=== PATIENT | male | born 1940 | race Caucasian/White ===

== ENCOUNTER 2017-10-26 03:43 | Inpatient (IN) | payer OTHER ==
[~2017-10-26] VITALS: Ht 188 cm; Wt 122.2 kg
[~2017-10-26 03:43] MED LIST: AUGMENTIN 875-1 EACH PO; COUMADIN5 M2 PO; ENOXAPARIN100 MG/1 M; LISINOPRIL20 M1 PO; METFORMIN HCL500 M3 PO; METOPROLOL TART50 M1 PO; OXYCODONE-ACET1 EACH PO; RED YEAST RICE600 M1 PO; VIAGRA100 M1 PO
--- NOTE | 2017-10-26 04:07 | ED GENERAL ADULT ---
History of Present Illness General Chief Complaint: Male Genitourinary Problems Stated Complaint: "BLEEDING FROM URINARY TRACT AND PASSING CLOTS" Source: patient Exam Limitations: no limitations Vital Signs & Intake/Output Vital Signs & Intake/Output Vital Signs Date Time Temp Pulse Resp B/P B/P Pulse O2 O2 Flow FiO2 Mean Ox Delivery Rate 10/26 1235 98.2 89 15 121/71 98 Room Air Room Air 10/26 1105 98.6 85 18 130/86 98 Room Air 10/26 0915 98.5 79 20 128/84 99 Room Air 10/26 0824 98.6 76 18 132/84 98 Room Air 10/26 0620 98.2 76 20 139/72 97 Room Air 10/26 0408 Room Air 10/26 0352 98.4 70 16 129/70 96 Room Air Room Air Allergies Coded Allergies: NO KNOWN ALLERGIES (12/04/10) Reconcile Medications Enoxaparin Sodium 100 MG/1 ML SYRINGE S/P SURGERY (Reported) Lisinopril 20 MG TABLET 20 MG PO DAILY HYPERTENSION (Reported) Metformin HCl 500 MG TABLET 500 MG PO DAILY DIABETES (Reported) Metoprolol Tartrate 50 MG TABLET 50 MG PO DAILY HYPERTENSION (Reported) Oxycodone HCl/Acetaminophen (Oxycodone-Acetaminophen 5-325) 1 EACH TABLET 1 TAB PO BIDP PRN PAIN (Reported) Red Yeast Rice 600 MG CAPSULE 600 MG PO BID HIGH CHOLESTEROL (Reported) Sildenafil Citrate (Viagra) 100 MG TABLET 1 TAB PO DAILY NEEDED ERECTILE DYSFUNCTION (Reported) 1 hour before sexual activity Warfarin Sodium (Coumadin) 5 MG TABLET 5 MG PO DAILY BLOOD THINNER (Reported) Triage Note: 77YO MALE TO TRIAGE W/CO BLEEDING W/URINATION SINCE THIS AM. STATES HE RECENTLY HAD UTI. Triage Nurses Notes Reviewed? yes Onset: Abrupt Duration: day(s): Timing: no prior history HPI: 10/26/17 4 AM 77-year-old man presents to the emergency department complaining of gross hematuria. He says that he's had a history of intermittent hematuria in the past and it cleared with a second course of antibiotic. Now he's passing gross blood and clots. He is on Coumadin for DVT. He denies any pain. He is also status post CyberKnife surgery for prostate cancer. (Jaycob Givens DO) Past History Travel History Traveled to [place] past 21 day No Medical History Any Pertinent Medical History? 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 No (Jaycob Givens DO) Review of Systems Review of Systems Constitutional: Denies: fever. EENTM: Denies: visual changes. Respiratory: Denies: short of breath. Cardiovascular: Denies: chest pain. GI: Denies: abdominal pain. Genitourinary: Reports: see HPI. Musculoskeletal: Reports: no symptoms. Skin: Denies: rash. Neurological/Psychological: Reports: no symptoms. Hematologic/Endocrine: Reports: see HPI. Immunologic/Allergic: Reports: no symptoms. (Jaycob Givens DO) Physical Exam Physical Exam General Appearance: well developed/nourished, alert, awake, anxious, moderate distress Head: atraumatic, normal appearance Eyes: Bilateral: normal appearance, PERRL, EOMI. Ears, Nose, Throat: normal pharynx, normal ENT inspection Neck: normal inspection Respiratory: normal breath sounds, chest non-tender, no respiratory distress Cardiovascular: regular rate/rhythm Peripheral Pulses: 4+ radial (R), 4+ radial (L) Gastrointestinal: soft, non-tender Rectal: heme negative stool Back: normal range of motion Extremities: no edema Neurologic/Psych: no motor/sensory deficits, awake, alert, oriented x 3 Skin: intact, normal color, warm/dry Core Measures ACS in differential dx? No CVA/TIA Diagnosis: No Sepsis Present: No Sepsis Focused Exam Completed? No (Jaycob Givens DO) Progress Differential Diagnoses I considered the following diagnoses in my evaluation of the patient: [ Coaguloathy, UTI, bladder stone, kidney stone] Plan of Care: Orders Procedure Date/time Status PROTHROMBIN TIME 10/27 599 Active CBC WITHOUT DIFFERENTIAL 07/02 0600 Active Heart Healthy Diet 10/26 L Active Weight 10/26 1258 Active Teach/Educate 10/26 1258 Active Pain Treatment and Response 10/26 1258 Active Nutritional Intake, Monitor 10/26 1258 Active Isolation 10/26 1258 Active Patient Care Conference 10/26 1258 Active Pathway - chart 10/26 1057 Active House Staff 10/26 1057 Active Patient Data 10/26 1057 Active Code Status 10/26 1057 Active OXYGEN SETUP (GEN) 10/26 0945 Active Saline Lock 10/26 0945 Active Admit to inpatient 10/26 0945 Active Vital Signs 10/26 0945 Active Activity/Ambulation 10/26 0945 Active Code Status 10/26 0945 Complete Continuous Bladder Irrigation 10/26 0426 Active Intake & Output 10/26 0407 Active PROTHROMBIN TIME 10/26 0407 Complete COMPREHENSIVE METABOLIC PANEL 10/26 0407 Complete CBC WITHOUT DIFFERENTIAL 10/26 0407 Complete CULTURE,URINE 10/26 0403 Active URINALYSIS 10/26 0359 Complete VTE Mechanical Prophylaxis 10/26 UNK Active FingerStick- Glucose 10/26 UNK Active Current Medications Sig/Jolene Start time Last Medication Dose Stop Time Status Admin Ceftriaxone Sodium 1,000 MG DAILY 10/27 0900 AC (Rocephin) Metoprolol Succinate 25 MG DAILY 10/26 1230 AC (Toprol XL) Insulin Aspart 0 TIDAC 10/26 1200 AC (NovoLOG) Oxycodone HCl 5 MG Q6 PRN 10/26 1130 AC (Roxicodone) Lisinopril 20 MG DAILY 10/26 1120 AC (Prinivil) Acetaminophen 1,000 MG Q8P PRN 10/26 1100 AC 10/26 (Tylenol) 1312 Laboratory Tests 10/26/17 0428: Anion Gap 12, Estimated GFR > 60, BUN/Creatinine Ratio 25.6 H, Glucose 116 H, Calcium 9.1, Total Bilirubin 0.4, AST 16 L, ALT 14 L, Alkaline Phosphatase 59, Total Protein 6.5, Albumin 3.9, Globulin 2.6, Albumin/Globulin Ratio 1.5, PT 32.5 H, INR 2.95 H, CBC w Diff NO MAN DIFF REQ, RBC 4.28 L, MCV 91.1, MCH 30.0, MCHC 33.0, RDW 15.9 H, MPV 7.7, Gran % 67.2, Lymphocytes % 21.1, Monocytes % 7.8, Eosinophils % 3.0, Basophils % 0.9, Absolute Granulocytes 4.4, Absolute Lymphocytes 1.4, Absolute Monocytes 0.5, Absolute Eosinophils 0.2, Absolute Basophils 0.1 10/26/17 0400: Urinalysis LIGHT H, Urine Color BLDY H, Urine Clarity TURBD H, Urine pH 6.0, Ur Specific [place] 1.020, Urine Protein >=300 H, Urine Ketones NEG, Urine Nitrite POS H, Urine Bilirubin NEG@ICTO, Urine Urobilinogen 0.2, Ur Leukocyte Esterase MOD H, Ur Microscopic SEDIMENT EXAMINED, Urine RBC PACKD H, Urine WBC > 75 H, Ur Epithelial Cells MOD H, Urine Bacteria FEW H, Urine Hemoglobin LARGE H, Urine Glucose NEG Microbiology 10/27 399 URINE ROUT: Urine Culture - RECD Initial ED EKG: none (Jaycob Givens DO) Differential Diagnoses I considered the following diagnoses in my evaluation of the patient: (Jerry Fernandez MD) Departure Departure Disposition: HOME OR SELF CARE Condition: Stable Referrals: Libby Archer MD (PCP/Family) Departure Forms: Customer Survey General Discharge Information Comments 10/26/17 The patient is currently getting CBI. His urine is improving. He will be signed out to Dr. Fernandez at 7 AM (Jaycob Givens DO) Departure Clinical Impression Primary Impression: Hematuria Secondary Impressions: UTI (urinary tract infection) Admission Note Spoke With: Josselin Fletcher MD Documentation of Exam: Documentation of any treatments & extenuating circumstances including Concerns Regarding Discharge (functional status, medication knowledge or non-compliance, living conditions, etc.) that warrant an admission rather than observation: IV hydration CBI urology evaluation serial lab exam medication adjustment continuing care discharge planning (Jerry Fernandez MD) Critical Care Note Critical Care Note Critical Care Time: non-applicable (Jaycob Givens DO)
[2017-10-26 04:44] LABS: ABSOLUTE BASOPHIL COUNT 0.1 /CUMM (0.0-0.2); ABSOLUTE EOSINOPHIL COUNT 0.2 /CUMM (0.0-0.7); ABSOLUTE GRANULOCYTE CT 4.4 /CUMM (1.4-6.5); ABSOLUTE LYMPH COUNT 1.4 /CUMM (1.2-3.4); ABSOLUTE MONOCYTE COUNT 0.5 /CUMM (0.10-0.60); BASOPHIL % 0.9 % (0.0-2.0); GRANULOCYTE % 67.2 % (42.2-75.2); MEAN CORPUSCULAR VOLUME 91.1 FL (80.0-94.0); MEAN PLATELET VOLUME 7.7 FL (7.4-10.4); PLATELET COUNT 228 /CUMM (130-400); RBC DISTRIBUTION WIDTH 15.9 % (11.5-14.5); RED BLOOD CELL CT 4.28 /CUMM (4.70-6.10); WHITE BLOOD CELL COUNT 6.6 /CUMM (4.8-10.8)
[2017-10-26 04:50] LABS: PT 32.5 SEC (9.4-12.5)
--- NOTE | 2017-10-26 10:18 | History & Physical ---
Karen TERRAZAS,[place] 10/26/17 1018: General Information and HPI History of Present Illness: Mr. 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 Patient is followed by Dr. Ross for urology and an oncologist at [facility]. The patient notes that he was recently treated for urinary tract infection and received 7 days of antibiotics. He stopped antibiotics about a week ago and was feeling well until last night. Last night around 11 PM, he began having blood in his urine and passing clots. He also reports urinary frequency and burning. Allergies/Medications Allergies: Coded Allergies: NO KNOWN ALLERGIES (12/04/10) Home Med list Enoxaparin Sodium 100 MG/1 ML SYRINGE S/P SURGERY (Reported) Lisinopril 20 MG TABLET 20 MG PO DAILY HYPERTENSION (Reported) Metformin HCl 500 MG TABLET 500 MG PO DAILY DIABETES (Reported) Metoprolol Tartrate 50 MG TABLET 50 MG PO DAILY HYPERTENSION (Reported) Oxycodone HCl/Acetaminophen (Oxycodone-Acetaminophen 5-325) 1 EACH TABLET 1 TAB PO BIDP PRN PAIN (Reported) Red Yeast Rice 600 MG CAPSULE 600 MG PO BID HIGH CHOLESTEROL (Reported) Sildenafil Citrate (Viagra) 100 MG TABLET 1 TAB PO DAILY NEEDED ERECTILE DYSFUNCTION (Reported) 1 hour before sexual activity Warfarin Sodium (Coumadin) 5 MG TABLET 5 MG PO DAILY BLOOD THINNER (Reported) Past History Travel History Traveled to [place] past 21 day No Medical History Neurological: NONE EENT: NONE Cardiovascular: AFIB, hypertension, hyperlipidemia, DVT-B/L AZAEL FILTERS PLACED Respiratory: NONE Gastrointestinal: NONE Hepatic: NONE Renal: NONE Musculoskeletal: NONE Psychiatric: NONE Endocrine: diabetes Blood Disorders: NONE Cancer(s): prostate cancer (STATUS POST CYBERKNIFE) 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 EENTM: Reports: no symptoms. Cardiovascular: Reports: no symptoms. Respiratory: Reports: no symptoms. GI: Reports: no symptoms. Genitourinary: Reports: see HPI. Musculoskeletal: Reports: no symptoms. Skin: Reports: no symptoms. Neurological/Psychological: Reports: no symptoms. Hematologic/Endocrine: Reports: no symptoms. Immunologic/Allergic: Reports: no symptoms. All Other Systems: Reviewed and Negative Exam & Diagnostic Data Last 24 Hrs of Vital Signs/I&O Vital Signs Date Time Temp Pulse Resp B/P B/P Pulse O2 O2 Flow FiO2 Mean Ox Delivery Rate 10/27 823 98.6 76 18 132/84 98 Room Air 10/26 0620 98.2 76 20 139/72 97 Room Air 10/26 0408 Room Air 10/26 0352 98.4 70 16 129/70 96 Room Air Room Air Intake & Output 10/26 1600 10/26 0800 10/26 0000 Intake Total 1600 Output Total 250 Balance 1350 Intake, Other 1600 Output, Urine 250 Patient 122.47 kg Weight Physical Exam General Appearance Alert, Oriented X3, Cooperative, No Acute Distress Cardiovascular Regular Rate, Normal S1, Normal S2 Lungs Clear to Auscultation Abdomen Normal Bowel Sounds, Soft, No Tenderness, Penis covered in blood, templeton draining red urine. Extremities No Edema, Normal Pulses, No Tenderness/Swelling Last 24 Hrs of Labs/Roney: Laboratory Tests 10/26/17 0428: Anion Gap 12, Estimated GFR > 60, BUN/Creatinine Ratio 25.6 H, Glucose 116 H, Calcium 9.1, Total Bilirubin 0.4, AST 16 L, ALT 14 L, Alkaline Phosphatase 59, Total Protein 6.5, Albumin 3.9, Globulin 2.6, Albumin/Globulin Ratio 1.5, PT 32.5 H, INR 2.95 H, CBC w Diff NO MAN DIFF REQ, RBC 4.28 L, MCV 91.1, MCH 30.0, MCHC 33.0, RDW 15.9 H, MPV 7.7, Gran % 67.2, Lymphocytes % 21.1, Monocytes % 7.8, Eosinophils % 3.0, Basophils % 0.9, Absolute Granulocytes 4.4, Absolute Lymphocytes 1.4, Absolute Monocytes 0.5, Absolute Eosinophils 0.2, Absolute Basophils 0.1 10/26/17 0400: Urinalysis LIGHT H, Urine Color BLDY H, Urine Clarity TURBD H, Urine pH 6.0, Ur Specific [place] 1.020, Urine Protein >=300 H, Urine Ketones NEG, Urine Nitrite POS H, Urine Bilirubin NEG@ICTO, Urine Urobilinogen 0.2, Ur Leukocyte Esterase MOD H, Ur Microscopic SEDIMENT EXAMINED, Urine RBC PACKD H, Urine WBC > 75 H, Ur Epithelial Cells MOD H, Urine Bacteria FEW H, Urine Hemoglobin LARGE H, Urine Glucose NEG Microbiology 10/26 0400 URINE ROUT: Urine Culture - RECD Assessment/Plan Assessment: MMr. 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 On presentation, vital signs were T 98.4, HR 70, RR 16, BP 129/70, saturating 96 % on room air. Laboratories were significant for NATAN globin 12.9, MCV 91.1, BUN 23, glucose 116, negative LFTs, INR 2.95. Urinalysis showed bloody urine, greater than 300 protein, positive nitrites, moderate leukocyte esterase, greater than 75 to wbcs. He will be admitted to general medicine and treated for the following problems: 1. Gross hematuria on warfarin 2. Radiation cystitis 3. Normocytic anemia The patient's hematuria is likely related to his prostate cancer with history of radiation in the setting of anticoagulation and urinary tract infection. His INR was therapeutic, however we will hold warfarin at this time given the bleeding. He has received continuous bladder irrigation and will we will continue this until he is not passing clots and the urine is clear. Plan: -Continuous bladder irrigation -Urology consult -Continue ceftriaxone -Follow urine culture -Monitor CBC -Daily INR -Type and screen tomorrow -Hold warfarin -Hold metformin -Insulin sliding scale/Accu-Cheks -Pain control -Continue other home medications DVT prophylaxis with Alps Heart healthy diet Full code As Ranked By This Provider Problem List: 1. Hematuria Core Measures/Misc (01/12) Acute Coronary Syndrome ACS Diagnosis: No Congestive Heart Failure Congestive Heart Failure Diagnosis No Cerebrovascular Accident CVA/TIA Diagnosis: No VTE (View Protocol) VTE Risk Factors Age>40 No Mechanical VTE Prophylaxis d/t N/A MechProphylax Ordered No VTE Pharm Prophylaxis d/t Bleeding (Active) Sepsis (View protocol) Sepsis Present: No If YES complete Sepsis Event Note If YES complete Sepsis Event Note Justine TERRAZAS,Josselin 10/26/17 1230: Core Measures/Misc (01/12) Sepsis (View protocol) If YES complete Sepsis Event Note If YES complete Sepsis Event Note Attending MD Review Statement Attending Statement Attending MD Statement: examined this patient, discuss w/resident/PA/HAND LEATHER TRIMMER, agreed w/resident/PA/HAND LEATHER TRIMMER, reviewed EMR data (avail), discussed with nursing, reviewed images Attending Assessment/Plan: 77-year-old male past medical history of diabetes, hypertension, hyperlipidemia, previous DVT in 2005 and 2008 and prostate CA status post CyberKnife treatment. He also had a hip replacement in July of this year. He says that last week he was diagnosed with a UTI and he got an antibiotic course, the initial antibiotic did not work needed to switch to another one and he completed the course on October 17. He says for the past few days he is now had increasing burning and pain on urination and today he noticed bright red blood in his urine. In the ER they tried CBI however despite being on his fifth liter the hematuria didn't clear and he has a lot of clots. At this point will bring him into GEN med, will continue CBI and pursue a formal urological evaluation. We'll continue his leigha inhibitor and his beta chago for hypertension. Hold his metformin. His INR is 2.9 as he takes Coumadin. At this point we won't actively reverse him, will keep a close watch on the H&H and follow the INR in the morning. He does have burning and pain on urination with the UA that shows greater than 75 white cells we'll treat him empirically for UTI and follow the urine culture. Will need to get collateral information from his PCP tomorrow. The question is whether he is developing this hematuria secondary to his radiation cystitis from previous radiation associated with prostate CA or whether he has any kind of anatomical abnormality that's predisposing him to recurrent UTIs and hematuria. We also need to clarify the Coumadin and whether he needs to be on it ongoing.
--- NOTE | 2017-10-26 12:30 | Admission Certification ---
Admission Certification Certification Statement - As attending physician, I certify that at the time of - admission, based on clinical presentation, severity of - symptoms, need for further diagnostic testing and - therapeutic interventions, and risk of adverse outcomes - without in-hospital treatment, in my clinical assessment, - this patient requires an acute hospital stay for a minimum - of two nights or longer. I have also considered psychsocial - factors such as support system, advanced age, financial - issues, cognitive issues, and failed out-patient treatments, - past re-admission history, safety of patient, and lack of - compliance as applicable. Specific rationale supporting this admission is: Acute hematuria and UTI needs IV antibiotics and CBI.
[2017-10-26 13:00] VITALS: BP 134/40
[2017-10-26 16:00] VITALS: BP 152/80
[2017-10-26 23:06] VITALS: BP 130/70
[2017-10-27 06:17] VITALS: BP 131/77
[2017-10-27 07:25] LABS: ABSOLUTE BASOPHIL COUNT 0.1 /CUMM (0.0-0.2); ABSOLUTE EOSINOPHIL COUNT 0.1 /CUMM (0.0-0.7); ABSOLUTE GRANULOCYTE CT 5.2 /CUMM (1.4-6.5); ABSOLUTE LYMPH COUNT 1.3 /CUMM (1.2-3.4); ABSOLUTE MONOCYTE COUNT 0.5 /CUMM (0.10-0.60); BASOPHIL % 0.7 % (0.0-2.0); EOSINOPHIL % 1.7 % (0-5); GRANULOCYTE % 72.6 % (42.2-75.2); HEMATOCRIT 37.7 % (42-52); MEAN CORPUSCULAR HGB 30.2 PG (27.0-31.0); MEAN CORPUSCULAR HGB CONC 33.4 G/DL (33.0-37.0); MEAN CORPUSCULAR VOLUME 90.4 FL (80.0-94.0); PLATELET COUNT 205 /CUMM (130-400); RBC DISTRIBUTION WIDTH 15.7 % (11.5-14.5); RED BLOOD CELL CT 4.17 /CUMM (4.70-6.10); WHITE BLOOD CELL COUNT 7.2 /CUMM (4.8-10.8)
[2017-10-27 08:12] LABS: PT 27.9 SEC (9.4-12.5)
--- NOTE | 2017-10-27 08:29 | PN- Housestaff ---
See Addendum Subjective Follow-up For: hematuria Complaints: pelvic pressure 2/2 bladder irrigation Subjective: No acute events overnight. Patient reports suprapubic discomfort and sensation of fullness with continuous bladder irrigation. He states he occassionally has penile pain with movement of catheter. Denies fever, chills, n/v/d, chest pain, SOB, abd pain. Review of Systems Constitutional: Reports: see HPI. Objective Last 24 Hrs of Vital Signs/I&O Vital Signs Date Time Temp Pulse Resp B/P B/P Pulse O2 O2 Flow FiO2 Mean Ox Delivery Rate 10/27 0617 98.4 73 18 131/77 95 Room Air 10/26 2306 98.1 80 15 130/70 94 Room Air 10/26 1603 88 152/80 10/26 1603 88 152/80 10/26 1600 88 152/80 10/26 1300 98.3 90 18 134/40 96 Room Air Room Air 10/26 1235 98.2 89 15 121/71 98 Room Air Room Air 10/26 1105 98.6 85 18 130/86 98 Room Air 10/26 0915 98.5 79 20 128/84 99 Room Air Intake & Output 10/27 1600 /02 0800 07/ 0000 Intake Total 240 150 Output Total 740 Balance 240 -590 Intake, Oral 240 150 Number 1 Bowel Movements Output, Urine 740 Physical Exam General Appearance: Alert, Oriented X3, Cooperative, sitting up in chair at bedside Skin: No Rashes Skin Temp/Moisture Exam: Warm/Dry HEENT: Atraumatic, PERRLA Neck: Supple Cardiovascular: Regular Rate, Normal S1, Normal S2, No Murmurs Lungs: Clear to Auscultation, Normal Air Movement Abdomen: Normal Bowel Sounds (no suprapubic tenderness ), Soft, No Tenderness Neurological: Normal Tone, Sensation Intact Extremities: No Edema, Normal Pulses Vascular: Normal Pulses Reproductive (MALE) templeton catheter in place with CBI functional Assessment/Plan Assessment: 77 year old male with PMH HTN, HLD, pAfib, h/o DVT 2005/2007 s/p IVC filter on warfarin (currently being held in the setting of gross hematuria), and prostate cancer s/p CyberKnife. Patient has been receiving continuous bladder irrigation and fluid has become clot free. Urinalysis showed moderate leuks and nitrite positive. Urine culture showed gram negative rods. Patient was started on Ceftriaxone and will de escalate abx as appropriate with sensitivities. #Hematuria -CBI -Urology consulted. Appreciate recommendations from Dr William MARTIN, Renal Ultrasound -OR in AM (NPO at [place]) -Continue to hold warfarin -start Finasteride 5mg daily starting now 10/27 Problem List: 1. Hematuria Pain Ratin Pain Location: none Pain Goal: Remain pain free Pain Plan: see a/p Tomorrow's Labs & Rationales: INR
[2017-10-27 15:20] VITALS: BP 138/72
--- NOTE | 2017-10-27 17:19 | RADIOLOGY REPORT ---
EXAMINATION: CR ABDOMEN CLINICAL INDICATION: Gross hematuria and positive urine cultures. UTI. COMPARISON: Renal ultrasound dated 10/27/2017. CTA of the abdomen and pelvis dated 12/03/2015. TECHNIQUE: AP view of the abdomen performed on 3 images. FINDINGS: The bowel gas pattern is normal. No calcifications are noted overlying the kidneys or the expected course of the ureters or bladder. An IVC filter is in place with tip at the L1-L2 level. Right upper quadrant mariam are in place from prior cholecystectomy. Bilateral total hip arthroplasties are partially imaged. [place] are seen overlying the pubic symphysis. There is a convex right lumbar scoliosis with moderate degenerative degenerative disc disease and spondylosis throughout the lumbar spine. Sacroiliac joints and pubic symphysis are intact. Linear atelectatic changes are likely present in the left CP angle. IMPRESSION: No radiopaque calculi seen.
--- NOTE | 2017-10-27 17:33 | ULTRASOUND REPORT ---
EXAMINATION: US RETROPERITONEAL COMPLETE (RENAL) CLINICAL INFORMATION: Gross hematuria and positive urine cultures. Presumptive diagnosis of UTI. COMPARISON: KUB dated 10/27/2017. MRI scan of the abdomen dated 12/06/2015. Right upper quadrant ultrasound dated 12/04/2015. TECHNIQUE: Real-time imaging of the kidneys and bladder. FINDINGS: Evaluation is limited due to patient's body habitus and patient's limited mobility, limiting ideal decubitus positioning. RIGHT KIDNEY: 11.4 x 6.0 x 5.6 cm (SAG x AP x TRV). The kidney is normal in size, contour, and echogenicity. Renal cortical thickness is normal. No calculi. No hydronephrosis. There is an approximately 1 cm diameter thin-walled hypoechoic avascular mass seen at the corticomedullary junction of the mid right kidney, similar to prior MRI scan, consistent with a cyst. LEFT KIDNEY: 12.6 x 7.0 x 5.5 cm (SAG x AP x TRV). The kidney is normal in size, contour, and echogenicity. Renal cortical thickness is normal. No calculi. No hydronephrosis. The two known mid left renal cysts are not clearly visualized on the submitted images. There may be an exophytic 1.7 cm hypoechoic mass seen arising from the mid to lower pole of the left kidney, corresponding to one of these cysts, but is not adequately evaluated. BLADDER: Bladder is decompressed by a Cox catheter and is therefore not adequately evaluated. IMPRESSION: 1. Stable cyst in the mid right kidney. 2. The 2 previously demonstrated left renal cysts are not appreciated on this exam. One of these cysts may be seen faintly in outline as discussed above. 3. Bladder not seen due to decompression by Cox catheter.
[2017-10-27 22:30] VITALS: BP 126/74
[2017-10-28 07:03] VITALS: BP 154/80
[2017-10-28 09:00] VITALS: BP 120/68
--- NOTE | 2017-10-28 11:37 | Cons- Urology ---
General Information and HPI Consulting Request Date of Consult: 10/27/17 Requested By: Davis Wang MD Reason for Consult: hematuria:prostate cancer Source of Information: patient, family, old records Exam Limitations: no limitations History of Present Illness: 77 yr old with Hx CaP post xrt (no hormone tx/chemo) at [facility] 14 months ago. PSA reportedly elevating post tx. Considered cryoablation but did not proceed. Pt with 2 episodes of gross hematuria then came to ER. CBI started with coumadin held. Allergies/Medications Allergies: Coded Allergies: NO KNOWN ALLERGIES (12/04/10) Home Med List: Enoxaparin Sodium 100 MG/1 ML SYRINGE S/P SURGERY (Reported) Lisinopril 20 MG TABLET 20 MG PO DAILY HYPERTENSION (Reported) Metformin HCl 500 MG TABLET 500 MG PO DAILY DIABETES (Reported) Metoprolol Tartrate 50 MG TABLET 50 MG PO DAILY HYPERTENSION (Reported) Oxycodone HCl/Acetaminophen (Oxycodone-Acetaminophen 5-325) 1 EACH TABLET 1 TAB PO BIDP PRN PAIN (Reported) Red Yeast Rice 600 MG CAPSULE 600 MG PO BID HIGH CHOLESTEROL (Reported) Sildenafil Citrate (Viagra) 100 MG TABLET 1 TAB PO DAILY NEEDED ERECTILE DYSFUNCTION (Reported) 1 hour before sexual activity Warfarin Sodium (Coumadin) 5 MG TABLET 5 MG PO DAILY BLOOD THINNER (Reported) Current Medications: Current Medications Sig/Jolene Start time Last Medication Dose Route Stop Time Status Admin Acetaminophen 1,000 MG Q8P PRN / 1100 AC 10/26 PO 2133 Ceftriaxone Sodium 1,000 MG DAILY@0630 10/27 0630 AC 10/28 IV 0537 Finasteride 5 MG 1700 / 1700 AC PO Finasteride 5 MG DAILY 10/27 1400 DC 10/27 PO 1719 Insulin Aspart 0 TIDAC 10/26 1200 DC SC Insulin Human Regular 2 UNITS .STK-MED ONE 10/28 0012 DC IV 10/28 0013 Insulin Human Regular 0 Q6 10/27 2359 AC 10/28 SC 0537 Lisinopril 20 MG DAILY 10/26 1120 AC 10/28 PO 0905 Metoprolol Succinate 25 MG DAILY 10/26 1230 AC 10/28 PO 0906 Past History Medical History Blood Transfusion Hx: No Neurological: NONE EENT: NONE Cardiovascular: AFIB, hypertension, hyperlipidemia, DVT-B/L [employer]AC[employer] Respiratory: NONE Gastrointestinal: NONE Hepatic: NONE Renal: NONE Musculoskeletal: NONE Psychiatric: NONE Endocrine: diabetes Blood Disorders: NONE Cancer(s): prostate cancer (STATUS POST CYBERKNIFE) FERMENTATION SCIENTIST/Reproductive: NONE Surgical History Pertinent Surgical History: hip replacement (BILATERAL), laminectomy Psychosocial History Where Do You Live? Home Services at Home: None Smoking Status: Never Smoked ETOH Use: quit tob 35 yrs ago Illicit Drug Use: denies illicit drug use Living Will? no Functional Ability ADLs Independent: dressing, eating, toileting, bathing. Ambulation: independent IADLs Independent: shopping, housework, finances, food prep, telephone, transportation , medication admin. Employment History Employment: Retired Retired? yes Review of Systems Review of Systems Constitutional: Reports: see HPI. EENTM: Denies: no symptoms. Cardiovascular: Denies: no symptoms. Respiratory: Denies: no symptoms. GI: Reports: abdominal pain. Genitourinary: Reports: hematuria. Musculoskeletal: Denies: no symptoms. Skin: Denies: no symptoms. Exam & Diagnostic Data Vital Signs and I&O Vital Signs Date Time Temp Pulse Resp B/P B/P Pulse O2 O2 Flow FiO2 Mean Ox Delivery Rate 10/28 0900 98.0 72 18 120/68 97 Room Air 10/28 0703 98.5 86 20 154/80 96 Room Air / 2230 98.2 76 18 126/74 97 /02 1520 97.8 88 20 138/72 93 Intake & Output 10/28 1600 07/03 0800 07/03 0000 / 1600 / 0800 07/ 0000 Intake Total 3620 800 240 150 Output Total 2725 950 1350 740 Balance -2725 -950 3620 -550 240 -590 Intake, Oral 120 800 240 150 Intake, Other 3500 Number 1 1 Bowel Movements Output, Urine 2725 950 1350 740 Physical Exam General Appearance: well developed/nourished, no apparent distress Head: atraumatic Eyes: Bilateral: normal appearance. Neck: normal inspection Respiratory: normal breath sounds Cardiovascular: regular rate/rhythm Gastrointestinal: normal bowel sounds, soft Back: normal inspection Extremities: normal inspection Neurologic/Psych: no motor/sensory deficits Skin: intact, normal color Reproductive: Normal male genitalia Last 24 Hours of Labs: Laboratory Tests 10/28 0845 Coagulation PT (9.4 - 12.5 SEC) 19.0 H INR (0.90 - 1.17) 1.73 H Imaging Results: PATIENT: GEORGIA DURAN PRESENT AGE: 77 PATIENT ACCOUNT NO: [id number] : 41 LOCATION: [facility] ORDERING PHYSICIAN: Elen Acuna MD SERVICE DATE: 10/27/17- EXAM TYPE: US - US-RENAL/KIDNEY EXAMINATION: US RETROPERITONEAL COMPLETE (RENAL) CLINICAL INFORMATION: Gross hematuria and positive urine cultures. Presumptive diagnosis of UTI. COMPARISON: KUB dated 10/27/2017. MRI scan of the abdomen dated 12/06/2015. Right upper quadrant ultrasound dated 12/04/2015. TECHNIQUE: Real-time imaging of the kidneys and bladder. FINDINGS: Evaluation is limited due to patient's body habitus and patient's limited mobility, limiting ideal decubitus positioning. RIGHT KIDNEY: 11.4 x 6.0 x 5.6 cm (SAG x AP x TRV). The kidney is normal in size, contour, and echogenicity. Renal cortical thickness is normal. No calculi. No hydronephrosis. There is an approximately 1 cm diameter thin-walled hypoechoic avascular mass seen at the corticomedullary junction of the mid right kidney, similar to prior MRI scan, consistent with a cyst. LEFT KIDNEY: 12.6 x 7.0 x 5.5 cm (SAG x AP x TRV). The kidney is normal in size, contour, and echogenicity. Renal cortical thickness is normal. No calculi. No hydronephrosis. The two known mid left renal cysts are not clearly visualized on the submitted images. There may be an exophytic 1.7 cm hypoechoic mass seen arising from the mid to lower pole of the left kidney, corresponding to one of these cysts, but is not adequately evaluated. BLADDER: Bladder is decompressed by a Cox catheter and is therefore not adequately evaluated. IMPRESSION: 1. Stable cyst in the mid right kidney. 2. The 2 previously demonstrated left renal cysts are not appreciated on this exam. One of these cysts may be seen faintly in outline as discussed above. 3. Bladder not seen due to decompression by Cox catheter. Assessment/Plan Assessment/Plan hematuria/cysto Copies To: Latrell Thomas MD Consult Acknowledgment - Thank you for your consult request. 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
--- NOTE | 2017-10-28 12:57 | PN- Housestaff ---
See Addendum Subjective Follow-up For: gross hematuria radiation cystitis Complaints: no complaints Subjective: Early this morning patient started experiencing increased suprapubic pressure that became painful. The templeton catheter was no longer functional. The catheter was flushed and symptoms resolved. Patient has been NPO since MN with sips of water. He denies fever, chills, n/v/d, chest pain, SOB, abd pain. Review of Systems Constitutional: Reports: see HPI. Objective Last 24 Hrs of Vital Signs/I&O Vital Signs Date Time Temp Pulse Resp B/P B/P Pulse O2 O2 Flow FiO2 Mean Ox Delivery Rate 10/28 0900 98.0 72 18 120/68 97 Room Air / 0703 98.5 86 20 154/80 96 Room Air / 2230 98.2 76 18 126/74 97 /02 1520 97.8 88 20 138/72 93 Intake & Output / 1600 07/03 0800 07/ 0000 Intake Total 3620 Output Total 2725 950 Balance -2725 -950 3620 Intake, Oral 120 Intake, Other 3500 Output, Urine 2725 950 Physical Exam General Appearance: Alert, Oriented X3, Cooperative, No Acute Distress Skin: No Rashes Skin Temp/Moisture Exam: Warm/Dry HEENT: Atraumatic, PERRLA Neck: Supple Cardiovascular: Regular Rate, Normal S1, Normal S2, No Murmurs Lungs: Clear to Auscultation, Normal Air Movement Abdomen: Normal Bowel Sounds, Soft, No Tenderness (obese) Extremities: No Edema, Normal Pulses Vascular: Normal Pulses Assessment/Plan Assessment: 77 year old male with PMH HTN, HLD, pAib, 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 Continuous bladder irrigation was initiated at time of admission and has continued. Patient no longer producing clots and CBI is running clear. Urology has been consulted and following. He had a negative KUB and renal ultrasound. He was started on Finasteride on 10/27/17 per Urology recs. Patient underwent cystoscopy today and awaiting findings. He was also found to have a UTI growing E.coli on cx. He is receiving ceftriaxone. #Hematuria -CBI -Negative KUB, renal ultrasound -Cystoscopy today -Started Finasteride per Urology recs -Continue to hold warfarin in the setting of bleeding #UTI (E.coli) -Ceftriaxone #chronic illness -continue home meds DVT prophylaxis: ambulation; ALPS Problem List: 1. UTI (urinary tract infection) 2. Hematuria Pain Ratin Pain Location: none Pain Goal: Remain pain free Pain Plan: see a/p Tomorrow's Labs & Rationales: inr
[2017-10-28] MEDS ORDERED: FINASTERIDE5 M1 PO (14:15)
--- NOTE | 2017-10-28 14:16 | Patient Discharge Instructions ---
Discharge Instructions General Discharge Information You were seen/treated for: Hematuria Watch for these problems: Fever, chest pain, shortness of breath Special Instructions: Please take all medications as directed. Please follow-up with primary care. please follow up with urology within two weeks of discharge Please restart your coumadin on October 01 Diet Continue normal diet: Yes Activity Full Activity/No Limits: Yes Acute Coronary Syndrome Inclusion Criteria At DC or during hospital stay patient has or had the following: ACS DIAGNOSIS No Discharge Core Measures Meds if any: Prescribed or Continued at Discharge Meds if any: NOT Prescribed or Continued at Discharge Congestive Heart Failure Inclusion Criteria At DC or during hospital stay patient has or had the following: CHF DIAGNOSIS No Discharge Core Measures Meds if any: Prescribed or Continued at Discharge Meds if any: NOT Prescribed or Continued at Discharge Cerebrovascular accident Inclusion Criteria At DC or during hospital stay patient has or had the following: CVA/TIA Diagnosis No Discharge Core Measures Meds if any: Prescribed or Continued at Discharge Meds if any: NOT Prescribed or Continued at Discharge Venous thromboembolism Inclusion Criteria VTE Diagnosis No VTE Type NONE VTE Confirmed by (Test) NONE Discharge Core Measures - Per Current guidelines, there needs to be overlap - treatment for the first 5 days of Warfarin therapy. - If discharged on Warfarin prior to 5 days of - overlap therapy, the patient will need to be - assessed for post discharge needs including - *Post discharge parental anticoagulation - *Warfarin and/or parental anticoagulation education - *Follow up date to check INR post discharge At least 5 days overlap therapy as Inpatient No Meds if any: Prescribed or Continued at Discharge Note: Overlap Therapy is Warfarin and Anticoagulant Meds if any: NOT Prescribed or Continued at Discharge
[2017-10-28 15:04] VITALS: BP 110/62
[2017-10-28 22:15] VITALS: BP 122/66
[2017-10-29 06:42] VITALS: BP 118/66
[2017-10-29 07:32] LABS: ABSOLUTE BASOPHIL COUNT 0.1 /CUMM (0.0-0.2); ABSOLUTE EOSINOPHIL COUNT 0.2 /CUMM (0.0-0.7); ABSOLUTE LYMPH COUNT 1.5 /CUMM (1.2-3.4); ABSOLUTE MONOCYTE COUNT 0.6 /CUMM (0.10-0.60); BASOPHIL % 0.9 % (0.0-2.0); EOSINOPHIL % 3.1 % (0-5); GRANULOCYTE % 67.8 % (42.2-75.2); HEMATOCRIT 39.2 % (42-52); MEAN CORPUSCULAR HGB 30.4 PG (27.0-31.0); MEAN CORPUSCULAR HGB CONC 33.2 G/DL (33.0-37.0); MEAN CORPUSCULAR VOLUME 91.4 FL (80.0-94.0); MEAN PLATELET VOLUME 8.2 FL (7.4-10.4); PLATELET COUNT 224 /CUMM (130-400); RED BLOOD CELL CT 4.28 /CUMM (4.70-6.10); WHITE BLOOD CELL COUNT 7.3 /CUMM (4.8-10.8)
[2017-10-29 07:48] VITALS: BP 124/68
[2017-10-29 08:15] LABS: PT 15.2 SEC (9.4-12.5)
--- NOTE | 2017-10-29 08:32 | PN- Housestaff ---
See Addendum Subjective Follow-up For: HEMATURIA RADIATION CYSTITIS UTI Complaints: no complaints Subjective: No acute events overnight. States he had some 'gas' pain and was given Simethicone which relieved his sx. He is eager to have the catheter out and go home as soon as is medically cleared to do so. Denies fever, chills, n/v/d, chest pain, abdominal pain, SOB. Review of Systems Constitutional: Reports: see HPI. Objective Last 24 Hrs of Vital Signs/I&O Vital Signs Date Time Temp Pulse Resp B/P B/P Pulse O2 O2 Flow FiO2 Mean Ox Delivery Rate 10/29 0748 124/68 10/29 0748 124/68 10/29 0642 98.0 68 16 118/66 96 Room Air 10/28 2215 98.9 76 16 122/66 95 Room Air 10/28 1504 98.0 69 20 110/62 92 / 0900 98.0 72 18 120/68 97 Room Air Intake & Output 10/29 1600 10/29 0800 07 0000 Intake Total 6220 400 Output Total 6750 365 Balance -530 35 Intake, Oral 220 400 Intake, Other 6000 Number 0 Bowel Movements Output, Urine 6750 365 Physical Exam General Appearance: Alert, Oriented X3, Cooperative, No Acute Distress Skin: No Rashes Skin Temp/Moisture Exam: Warm/Dry HEENT: Atraumatic, PERRLA Neck: Supple Cardiovascular: Regular Rate, Normal S1, Normal S2, No Murmurs Lungs: Clear to Auscultation, Normal Air Movement Abdomen: Normal Bowel Sounds, Soft, No Tenderness (obese), no suprapubic tenderness to palpation Extremities: No Edema, Normal Pulses Reproductive (MALE) Normal male genitalia, templeton catheter in place with CBI functional. Assessment/Plan Assessment: 77 year old male with PMH prostate CA tx with CyberKnife, h/o DVT 2005 and 2007 on warfarin (held currently) and IVC filter placed, pAfib, HTN, HLD admitted for gross hematuria and found to have UTI. He is currently being treated with Ceftriaxone for UTI and CBI; s/p cystoscopy with Dr. Thomas on 10/28. He continues to improve and remain symptom free. #Hematuria -CBI-will discontinue today and conduct voiding trial: likely d/c home if able to void -Continue to hold Warfarin per Urology recs for 2 more days (INR 1.39) #UTI (E.coli) -Ceftriaxone; will change to PO abx if being discharged #Chronic illness -continuing home meds DVT Prophylaxis: ALPS/ambulation Problem List: 1. Hematuria 2. UTI (urinary tract infection) Pain Ratin Pain Location: none Pain Goal: Remain pain free Pain Plan: see a/p Tomorrow's Labs & Rationales: INR if still inpatient
[2017-10-29] MEDS ORDERED: KEFLEX500 M1 PO ×2 (11:14→11:35)
[2017-10-29] MEDS ORDERED: FINASTERIDE5 M1 PO (11:35)
[2017-10-29] MEDS ORDERED: CASODEX50 M1 PO (11:50)
== END 2017-10-29 12:49 | DRG 700 ==
LOC: ERH 03:43 → 2NB 09:45 → ERHI 09:45 → ENRESERV 12:02 → ENTRNSPT 12:38 → CMPTRNSPT 12:52 → 2NB 12:52 → 1NO 10-27 13:50 → ENTRNSPT 10-28 13:01 → EDTRNSPTSTS 10-28 13:02 → CMPTRNSPT 10-28 13:22 → ENPENDDIS 10-29 11:35 → 1NO 10-29 12:49
PROVIDERS: Emergency Medicine; Internal Medicine
DX: N30.41 Irradiation cystitis with hematuria (principal); Z86.718 Personal history of other venous thrombosis and embolism; Z79.01 Long term (current) use of anticoagulants; N39.0 Urinary tract infection, site not specified; E11.9 Type 2 diabetes mellitus without complications; Z79.84 Long term (current) use of oral hypoglycemic drugs; E78.5 Hyperlipidemia, unspecified; I10 Essential (primary) hypertension; I48.0 Paroxysmal atrial fibrillation; Z95.9 Presence of cardiac and vascular implant and graft, unspecified; Z85.46 Personal history of malignant neoplasm of prostate; Z96.643 Presence of artificial hip joint, bilateral; B96.20 Unspecified Escherichia coli [E. coli] as the cause of diseases classified elsewhere; T45.515A Adverse effect of anticoagulants, initial encounter
CPT/HCPCS: 1NSP; 2NBSP; 36592; 74018; 76775; 81001; 87086; 96374; J0696; J1815